=== PATIENT | female | born 1975 | race Hispanic/Latino ===

== ENCOUNTER 2020-03-21 06:20 | Day surgery (SDC) | payer MEDICARE ==
[~2020-03-21] VITALS: Ht 152.4 cm; Wt 98.0 kg
[2020-03-21] VITALS (8 sets, daily range): BP systolic 79–115; BP diastolic 32–73
[~2020-03-21 06:20] MED LIST: ATOR10TA69 PO; DICY20TA11 PO; LEVE1000 PO; OXCA600T18 PO; RIZA10TA41 PO; TOPI25TA48 PO
[2020-03-21] MEDS ORDERED: PROPOFOL 10 MG/ML 20ML VIAL IV ONE (08:32)
[2020-03-21] MEDS ORDERED: LIDOCAINE HCL 1% 20 ML VIAL ONE (08:33)
[2020-03-21] MEDS: SODIUM CHLORIDE 0.9% 1000ML 1,000 ML IV ONE (08:49)
== END 2020-03-21 09:10 | disposition home or self-care (01) ==
LOC: DAH 06:20 → ENDO 06:20
PROVIDERS: ATTEND Surgery
DX: K21.9 Gastro-esophageal reflux disease without esophagitis (principal); Z20.822 Contact with and (suspected) exposure to COVID-19; K44.9 Diaphragmatic hernia without obstruction or gangrene; E66.01 Morbid (severe) obesity due to excess calories; Z98.890 Other specified postprocedural states; Z98.891 History of uterine scar from previous surgery; Z98.51 Tubal ligation status; Z90.49 Acquired absence of other specified parts of digestive tract; Z83.3 Family history of diabetes mellitus; Z82.49 Family history of ischemic heart disease and other diseases of the circulatory system; Z82.3 Family history of stroke; Z68.41 Body mass index [BMI] 40.0-44.9, adult
CPT/HCPCS: 43235; A4215 ×2; A4221; A4222; A4223; A4606; A4620; A4657; C9803; J2704; J7030; U0003

== ENCOUNTER 2020-05-05 12:00 | Inpatient (IN) | payer MEDICARE ==
[~2020-05-05] VITALS: Ht 162.6 cm; Wt 72.6 kg
[~2020-05-05 12:00] MED LIST changes: -DICY20TA11 PO
[2020-05-07 14:03] LABS: BASOPHILS % (AUTO) 0.3 % (0.0-5.0); EOSINOPHILS % (AUTO) 1.1 % (0.0-8.0); HEMATOCRIT 46.6 % (36-48); LYMPHOCYTES % (AUTO) 23.8 % (21.0-51.0); MEAN CORPUSCULAR HEMOGLOBIN 27.9 pg (27.0-33.0); MEAN CORPUSCULAR VOLUME 87.1 fL (79-99); MONOCYTES % (AUTO) 5.1 % (3.0-13.0); NEUTROPHILS % (AUTO) 69.4 % (40.0-77.0); PLATELET COUNT (AUTO) 226 K/uL (130-400); RED BLOOD CELL COUNT(AUTO) 5.35 MIL/uL (4.00-5.50); RED CELL DISTRIBUTION WIDTH 13.3 % (11.0-15.5); WHITE BLOOD COUNT (AUTO) 9.3 K/uL (4.8-10.8)
[2020-05-07 14:16] LABS: CREATININE 0.7 mg/dL (0.5-1.5)
[2020-05-07 14:23] LABS: INR 1.04 (0.85-1.15); PROTHROMBIN TIME 11.3 SEC (9.6-11.6)
[2020-05-07 14:25] LABS: PARTIAL THROMBOPLASTIN TIME 26.3 SEC (26.3-35.5)
[2020-05-09] MEDS ORDERED: ALBU8.5H8 IH (10:26)
[2020-05-09 11:03] VITALS: BP 139/82
[2020-05-12] VITALS (25 sets, daily range): BP systolic 119–157; BP diastolic 45–97
[2020-05-12] MEDS ORDERED: DEXAMETHASONE SOD PHOSPHATE 10MG/ML 1ML VIAL ONE (07:17)
[2020-05-12] MEDS ORDERED: ONDANSETRON 4MG INJ ONE (07:17)
[2020-05-12] MEDS ORDERED: SUCCINYLCHOLINE CHLORIDE 20 MG/ML 10 ML VIAL ONE (07:17)
[2020-05-12] MEDS ORDERED: LIDOCAINE PF 100MG/5ML (2%) SYRINGE 5ML ONE (07:17)
[2020-05-12] MEDS ORDERED: FENTANYL CITRATE PF 50 MCG/1 ML 2ML VIAL ONE ×5 (07:18→11:55)
[2020-05-12] MEDS ORDERED: PROPOFOL 10 MG/ML 20ML VIAL IV ONE ×2 (07:18→07:19)
[2020-05-12] MEDS ORDERED: GLYCOPYRROLATE 1 MG/5 ML SYRINGE ONE (07:18)
[2020-05-12] MEDS ORDERED: ROCURONIUM 10MG/1ML SYR 10 MG/ML ML ONE ×2 (07:18→07:32)
[2020-05-12] MEDS ORDERED: MIDAZOLAM HCL 1 MG/ML 2ML VIAL ONE ×2 (07:18→08:09)
[2020-05-12] MEDS ORDERED: NEOSTIGMINE 5MG/5ML SYR IV ONE (07:18)
[2020-05-12] MEDS ORDERED: LACTATED RINGERS 1000ML 1,000 ML IV ONE (07:40)
[2020-05-12] MEDS: CEFAZOLIN SODIUM 1 GM VIAL IVP ONE ×2 (07:42→09:05)
[2020-05-12] MEDS ORDERED: BUPIVACAINE/PF 0.5% 30ML VIAL ONE (07:54)
[2020-05-12] MEDS ORDERED: 0.9%NACL 1000ML 1,000 ML IV SCH (08:00)
[2020-05-12] MEDS ORDERED: ESMOLOL HCL 10 MG/ML 10 ML VIAL ONE (09:10)
[2020-05-12] MEDS: LACTATED RINGERS 1000ML 1,000 ML IV SCH ×2 (14:25→20:25)
[2020-05-12] MEDS: MORPHINE 4 MG SYG IVP PRN ×2 (14:29→20:27)
[2020-05-12] MEDS ORDERED: COMPOUND IV MISC 1 EACH IVSOLN MISC PRN (15:00)
[2020-05-12] MEDS: LEVETIRACETAM 1,000 MG in 0.9%NACL 100ML 100 ML IV SCH ×2 (15:42→22:25)
[2020-05-12] MEDS: CEFAZOLIN SODIUM 1 GM VIAL IVP SCH (16:50)
[2020-05-12] MEDS: FAMOTIDINE 20MG VIAL IV SCH (20:25)
[2020-05-12] MEDS: ONDANSETRON 4MG INJ IVP PRN (20:27)
[2020-05-12] MEDS: ENOXAPARIN SODIUM 30 MG/0.3 ML SQ SCH (20:27)
[2020-05-13 00:33] VITALS: BP 124/60
[2020-05-13] MEDS: CEFAZOLIN SODIUM 1 GM VIAL IVP SCH (01:15)
[2020-05-13] MEDS: MORPHINE 4 MG SYG IVP PRN ×3 (01:16→14:46)
[2020-05-13] MEDS: LACTATED RINGERS 1000ML 1,000 ML IV SCH ×2 (03:05→11:39)
[2020-05-13] MEDS: KETOROLAC 30MG VIAL (30MG/ML) IV PRN ×3 (04:54→18:31)
[2020-05-13 04:59] LABS: BASOPHILS % (AUTO) 0.1 % (0.0-5.0); HEMATOCRIT 35.2 % (36-48); LYMPHOCYTES % (AUTO) 10.8 % (21.0-51.0); MEAN CORPUSCULAR HEMOGLOBIN 29.3 pg (27.0-33.0); MEAN CORPUSCULAR HGB CONC 34.1 g/dL (32.0-36.0); MEAN CORPUSCULAR VOLUME 85.9 fL (79-99); NEUTROPHILS % (AUTO) 82.6 % (40.0-77.0); PLATELET COUNT (AUTO) 242 K/uL (130-400); RED CELL DISTRIBUTION WIDTH 13.4 % (11.0-15.5); WHITE BLOOD COUNT (AUTO) 14.5 K/uL (4.8-10.8)
[2020-05-13 05:13] LABS: CREATININE 0.7 mg/dL (0.5-1.5); POTASSIUM 3.9 mmol/L (3.5-5.1)
[2020-05-13 05:23] VITALS: BP 103/60
[2020-05-13] MEDS: LEVETIRACETAM 1,000 MG in 0.9%NACL 100ML 100 ML IV SCH ×2 (06:35→14:50)
[2020-05-13 08:00] VITALS: BP 102/54
[2020-05-13] MEDS: FAMOTIDINE 20MG VIAL IV SCH (09:00)
[2020-05-13] MEDS: ENOXAPARIN SODIUM 30 MG/0.3 ML SQ SCH (09:01)
[2020-05-13 12:00] VITALS: BP 104/64
[2020-05-13 16:00] VITALS: BP 92/23
[2020-05-13] MEDS: ONDANSETRON 4MG INJ IVP PRN (16:52)
== END 2020-05-13 19:05 | disposition home or self-care (01) | DRG 621 ==
LOC: EDSTATUS 12:00 → DAHIP 05-12 06:37 → 3DH 05-12 12:36
PROVIDERS: ADMIT Surgery; ATTEND Surgery
PROC: 0D164ZA Bypass Stomach to Jejunum, Percutaneous Endoscopic Approach (ICD-10-PCS; principal; 2020-05-12 09:26)
PROC: 0DJ08ZZ Inspection of Upper Intestinal Tract, Via Natural or Artificial Opening Endoscopic (ICD-10-PCS; 2020-05-12 09:26)
DX: E66.01 Morbid (severe) obesity due to excess calories (principal); K21.9 Gastro-esophageal reflux disease without esophagitis; M19.90 Unspecified osteoarthritis, unspecified site; E78.00 Pure hypercholesterolemia, unspecified; Z20.822 Contact with and (suspected) exposure to COVID-19; Z68.27 Body mass index [BMI] 27.0-27.9, adult; Z90.49 Acquired absence of other specified parts of digestive tract; Z83.3 Family history of diabetes mellitus; Z82.3 Family history of stroke; Z82.49 Family history of ischemic heart disease and other diseases of the circulatory system
CPT/HCPCS: 36415; 43235; 80048; 82948; 85025; 85610; 85730; 86850; 86900; 86901; 97039; G0378; J0330; J0690; J1100; J1650; J1885; J1953; J2001; J2250; J2270; J2405; J2704; J2710; J3010; J3490; J7030; J7120; U0003